=== PATIENT | male | born 1975 ===

== ENCOUNTER 2023-06-13 13:04 | Outpatient (AMB) | payer OTHER, SELFPAY ==
--- NOTE | 2023-06-13 13:03 | MHC.OFFWIV ---
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 He also states he has myalgias fever congestion and a mild cough tested negative for COVID at home yesterday PFS Social History Patient Tobacco Use Status: Never used Tobacco Review of Systems Const Reports body aches, Reports chills, Reports fatigue, Reports fever(s) and Reports headache(s) ENT Reports headache(s), Reports nasal congestion, Reports nasal discharge and Reports sore throat Resp Reports chest congestion and Reports cough Musc Reports myalgias Neuro Reports headache(s) Endo Reports fatigue Physical Exam Vital Signs: Last Vital Signs Temp 100.3 F 06/13/23 13:13 Pulse 123 H 06/13/23 13:13 BP 130/90 H 06/13/23 13:13 Pulse Ox 98 06/13/23 13:13 Oxygen Delivery Method Room Air 06/13/23 13:13 BMI result Body Mass Index 38.8 Const General: acute distress mild HEENT Head: Yes normal to inspection, Yes normocephalic and Yes atraumatic Ears: hearing grossly normal bilaterally, external ears normal, TM's normal bilaterally, TM normal on the right and TM normal on the left General nose exam: Normal external nose present Face and sinus: Yes normal facial exam and Yes sinuses nontender Mouth: Normal oral and palatal mucosa present Throat: Yes posterior oropharynx abnormal (exudative and erythema) Eyes General: appearance normal, both eyes and all related structures Resp Effort & Inspection: normal respiratory effort Auscultation: clear to auscultation bilaterally Cardio Rate: regular rate Rhythm: regular rhythm Results AMB Rapid Strep AMB Rapid Strep Negative Last Edit by Alphonso Vincent CMA on 06/13/23 13:22 Results Reviewed Results Reviewed: Laboratory Last Values Strep Scn [facility] Negative 06/13/23 13:21 Assessment & Plan Assessment & Plan (1) Exudative pharyngitis: Code(s): J02.9 - Acute pharyngitis, unspecified Plan: The patient was put on antibiotic for exudative pharyngitis for the next 10 days. Tomorrow he will get his viral culture back. Plan See plan Orders: Orders AMB Rapid Strep Screen Today Z13.9 - Encounter for screening, unspecified Mario Chu MD SARS-CoV2/FLU/RSV Today J02.9 - Acute pharyngitis, unspecified LUZ Gloria Medications: New amoxicillin 875 mg PO BID 10 days PRN 20 tabs 0RF exudative pharngitis LUZ Gloria Coding Level of Care Code Est Pt Level 3 (10002) Diagnoses Exudative pharyngitis J02.9
[2023-06-13 13:13] VITALS: BP 130/90; PULSE 123; TEMP 37.9; O2SAT 98; BMI 38.8
== END 2023-06-13 14:15 | disposition home or self-care (01) ==
PROVIDERS: Visit Provider Physician Assistant Medical
DX: J02.9 Acute pharyngitis, unspecified (principal)
CPT/HCPCS: 87880; 99203

== ENCOUNTER 2023-06-13 16:50 | Outpatient (REF) | payer OTHER, SELFPAY ==
[2023-06-14 06:57] LABS: Influenza A PCR NEGATIVE (Negative); Influenza B PCR NEGATIVE (Negative); Resp Syncy Virus RNA Qual PCR NEGATIVE (Negative); SARS COV2 PCR INHOUSE NEGATIVE (Negative)
== END 2023-06-13 16:51 | disposition home or self-care (01) ==
LOC: HO.LNP 16:50
PROVIDERS: Visit Provider Physician Assistant Medical
DX: Z11.52 Encounter for screening for COVID-19 (principal); Z20.822 Contact with and (suspected) exposure to COVID-19; J02.9 Acute pharyngitis, unspecified
CPT/HCPCS: 0241U